=== PATIENT | male | born 1960 | race Caucasian/White ===

== ENCOUNTER 2021-06-14 15:51 | Emergency (ER) | payer OTHER, SELFPAY ==
[2021-06-14 15:52] VITALS: O2SAT 91
[2021-06-14 15:53] VITALS: BP 121/82; PULSE 76; RESP 28; TEMP 36.1; O2SAT 89; BMI 29.4
--- NOTE | 2021-06-14 15:58 | ED.RN ---
[facility].
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
[2021-06-14 16:02] VITALS: O2SAT 93
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
--- NOTE | 2021-06-14 16:08 | ED.RN ---
[facility] ADMINISTERING PAIN MEDICATIONS.
[2021-06-14 16:09] VITALS: BP 131/85; PULSE 77; O2SAT 99
--- NOTE | 2021-06-14 16:09 | ED.RN ---
[facility] AT BEDSIDE SPEAKING WITH PT.
--- NOTE | 2021-06-14 16:10 | ED.RN ---
[facility] STATES THEY ARE TRANSPORTING TO [facility].
--- NOTE | 2021-06-14 16:11 | ED.RN ---
PT ALERT AND JOKING WITH STAFF.
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
--- NOTE | 2021-06-14 16:15 | ED.RN ---
PER [facility], WE DO NOT NEED TO CALL REPORT.
[2021-06-14 16:17] VITALS: BP 131/85; PULSE 74; RESP 28; O2SAT 92
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
== END 2021-06-14 16:19 | disposition short-term general hospital (02) ==
PROVIDERS: Emergency Provider Emergency Medicine
DX: S42.001A Fracture of unspecified part of right clavicle, initial encounter for closed fracture (principal); S22.5XXA Flail chest, initial encounter for closed fracture; V80.52XA Occupant of animal-drawn vehicle injured in collision with other specified motor vehicle, initial encounter
CPT/HCPCS: 71045; 99251; 99285; G0463